=== PATIENT | female | born 1975 | race Caucasian/White ===

== ENCOUNTER 2020-02-27 02:37 | Outpatient (CLI) | payer BC | END 2020-02-27 02:38 | disposition critical access hospital (66) | LOC: EMS 02:37 | PROVIDERS: ATTEND Surgery | DX: R40.4 Transient alteration of awareness (principal) | CPT/HCPCS: A0425; A0433 ==

== ENCOUNTER 2020-02-27 02:54 | Emergency (ER) | payer BC ==
--- NOTE | 2020-02-27 02:59 | ED Physician Documentation ---
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 Medic reports that patient is visiting [place] from [place], staying with friends at a rental house. 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 Per medic report, patients friend did not call 911 for an hour after patient exhibited ALOC. medics arrived to find patient unconscious and unresponsive to any stimuli including painful stimulus, and shallow respirations with hypopnea (respiratory rate was estimated to be 6/min). she was thus intubated by EMS. she was given versed 5mg as well as succinylcholine, but required repeat dose of versed and then given vecuronium; the second dose of versed and the vecuronium were given approximately 15 minutes FABRIC SEPARATOR OPERATOR. prior to decision to intubate was made, patient received narcan to total of 2mg IV with no change in LOC nor respiratory rate. no hypotension in field nor en route. per medics, no evidence to suggest illicit drug use on scene. no evidence nor description by friend of injury or fall, and no description of seizure-like activity Review of Systems Unable to obtain: Intubated PD PAST MEDICAL HISTORY - Past Medical History Psych: ADD/ADHD - Present Medications Home Medications: Ambulatory Orders Medication Instructions Recorded Confirmed Dextroamphetamine/Amphetamine 20 mg PO 02/27/20 02/27/20 [Adderall 20 mg Tablet] Dextroamphetamine/Amphetamine 15 mg PO 02/27/20 [Adderall Xr 15 mg Capsule] Pantoprazole [Protonix] 40 mg PO BID 02/27/20 02/27/20 SUMAtriptan [Imitrex] 50 mg PO ONCE PRN 02/27/20 02/27/20 Valacyclovir HCl [Valtrex] 1 g PO PRN 02/27/20 - Allergies Allergies/Adverse Reactions: Allergies Allergy/AdvReac Type Severity Reaction Status Date / Time Unable to Assess Allergy Verified 02/27/20 03:05 PD ED PE NORMAL - Vitals Vital signs reviewed: Yes - General General: Well developed/nourished - HEENT HEENT: Atraumatic, Other (pupils are equal, constricted (3mm)) - Cardiac Cardiac: RRR - Respiratory Respiratory: Clear bilaterally, Other (intubated) - Abdomen Abdomen: Non distended - Derm Derm: Normal color, Warm and dry - Extremities Extremities: No deformity - Neuro Eye Opening: None Motor: None Verbal: None (intubated) GCS Score: 3 PD ED PE EXPANDED - General General: Unresponsive, Other (intubated, no response to stimuli including pain) Results - Vitals Vitals: Vital Signs - 24 hr 02/27/20 02/27/20 02/27/20 02:53 03:00 03:07 Temperature 33.2 C L Heart Rate 66 55 L Respiratory 11 L Rate Blood Pressure 135/95 H O2 Saturation 100 02/27/20 02/27/20 02/27/20 03:30 03:54 04:30 Temperature 34.5 C L 34.7 C L 35.1 C L Heart Rate 72 57 L 112 H Respiratory 18 18 14 Rate Blood Pressure 130/96 H 126/89 H 142/99 H O2 Saturation 100 100 100 02/27/20 02/27/20 02/27/20 05:00 05:30 06:00 Temperature 35.4 C L 35.9 C L 36.2 C L Heart Rate 89 87 88 Respiratory 18 17 12 Rate Blood Pressure 147/102 H 128/80 124/71 O2 Saturation 100 100 100 02/27/20 02/27/20 02/27/20 06:30 06:47 07:00 Temperature 36.4 C L 36.4 C L 36.4 C L Heart Rate 104 H 94 Respiratory 15 13 Rate Blood Pressure 128/83 H 137/86 H O2 Saturation 100 100 02/27/20 02/27/20 07:23 08:04 Temperature 36.5 C Heart Rate 100 99 Respiratory 18 16 Rate Blood Pressure 139/95 H 129/75 O2 Saturation 99 99 Oxygen O2 Source Room air - EKG (time done) No standard instances Rate: Rate (enter#) (62) Rhythm: NSR [place]: Normal Intervals: Normal ND QRS: Normal Ischemia: Normal ST segments, T wave inversion (V2, V3) - Labs Labs: Laboratory Tests 02/27/20 02/27/20 02/27/20 03:00 03:00 03:11 WBC 8.6 RBC 3.92 L Hgb 12.5 Hct 36.2 L MCV 92.3 MCH 31.9 H MCHC 34.5 RDW 12.7 Plt Count 263 MPV 9.4 Neut # (Auto) 5.8 Lymph # (Auto) 1.8 [place] # (Auto) 0.7 Eos # (Auto) 0.2 Baso # (Auto) 0.1 Absolute Nucleated RBC 0.00 Nucleated RBC % 0.0 Sodium Potassium Chloride Carbon Dioxide Anion Gap BUN Creatinine Estimated GFR (MDRD) Glucose Calcium Total Bilirubin AST ALT Alkaline Phosphatase Troponin I High Sens B-Natriuretic Peptide 19 Total Protein Albumin Globulin Albumin/Globulin Ratio Lipase TSH HCG, Quant Urine Color YELLOW Urine Clarity CLEAR Urine pH 7.0 Ur Specific [place] 1.020 Urine Protein NEGATIVE Urine Glucose (UA) NEGATIVE Urine Ketones 15 H Urine Occult Blood NEGATIVE Urine Nitrite NEGATIVE Urine Bilirubin NEGATIVE Urine Urobilinogen 1 (NORMAL) Ur Leukocyte Esterase NEGATIVE Ur Microscopic Review NOT INDICATED Urine Culture Comments NOT INDICATED Nasal Adenovirus (PCR) Nasal B. parapertussis DNA (PCR) Nasal Coronavir 229E PCR Nasal Coronavir HKU1 PCR Nasal Coronavir NL63 PCR Nasal Coronavir OC43 PCR Nasal Enterovir/Rhinovir PCR Nasal Influenza B PCR Nasal Influenza A PCR Nasal Parainfluen 1 PCR Nasal Parainfluen 2 PCR Nasal Parainfluen 3 PCR Nasal Parainfluen 4 PCR Nasal RSV (PCR) Nasal B.pertussis DNA PCR Nasal C.pneumoniae (PCR) Hal Human Metapneumo PCR Nasal M.pneumoniae (PCR) Nasal SARS-CoV-2 (PCR) Salicylates Urine Opiates Screen NEGATIVE Ur Oxycodone Screen NEGATIVE Urine Methadone Screen NEGATIVE Ur Propoxyphene Screen NEGATIVE Acetaminophen Ur Barbiturates Screen NEGATIVE Ur Tricyclics Screen NEGATIVE Ur Phencyclidine Scrn NEGATIVE Ur Amphetamine Screen POSITIVE H U Methamphetamines Scrn POSITIVE H U Benzodiazepines Scrn NEGATIVE Urine Cocaine Screen POSITIVE H U Cannabinoids Screen NEGATIVE Ethyl Alcohol 02/27/20 02/27/20 02/27/20 03:27 03:27 03:27 WBC RBC Hgb Hct MCV MCH MCHC RDW Plt Count MPV Neut # (Auto) Lymph # (Auto) [place] # (Auto) Eos # (Auto) Baso # (Auto) Absolute Nucleated RBC Nucleated RBC % Sodium 137 Potassium 3.1 L Chloride 100 L Carbon Dioxide 26 Anion Gap 11.0 BUN 8 Creatinine 0.6 Estimated GFR (MDRD) 108 Glucose 97 Calcium 8.7 Total Bilirubin 1.9 H AST 25 ALT 18 Alkaline Phosphatase 42 Troponin I High Sens B-Natriuretic Peptide Total Protein 6.5 L Albumin 4.1 Globulin 2.4 Albumin/Globulin Ratio 1.7 Lipase 21 L TSH 3.74 HCG, Quant < 0.60 Urine Color Urine Clarity Urine pH Ur Specific [place] Urine Protein Urine Glucose (UA) Urine Ketones Urine Occult Blood Urine Nitrite Urine Bilirubin Urine Urobilinogen Ur Leukocyte Esterase Ur Microscopic Review Urine Culture Comments Nasal Adenovirus (PCR) Nasal B. parapertussis DNA (PCR) Nasal Coronavir 229E PCR Nasal Coronavir HKU1 PCR Nasal Coronavir NL63 PCR Nasal Coronavir OC43 PCR Nasal Enterovir/Rhinovir PCR Nasal Influenza B PCR Nasal Influenza A PCR Nasal Parainfluen 1 PCR Nasal Parainfluen 2 PCR Nasal Parainfluen 3 PCR Nasal Parainfluen 4 PCR Nasal RSV (PCR) Nasal B.pertussis DNA PCR Nasal C.pneumoniae (PCR) Hal Human Metapneumo PCR Nasal M.pneumoniae (PCR) Nasal SARS-CoV-2 (PCR) Salicylates < 6.0 Urine Opiates Screen Ur Oxycodone Screen Urine Methadone Screen Ur Propoxyphene Screen Acetaminophen < 10 L Ur Barbiturates Screen Ur Tricyclics Screen Ur Phencyclidine Scrn Ur Amphetamine Screen U Methamphetamines Scrn U Benzodiazepines Scrn Urine Cocaine Screen U Cannabinoids Screen Ethyl Alcohol < 5.0 02/27/20 02/27/20 03:27 04:00 WBC RBC Hgb Hct MCV MCH MCHC RDW Plt Count MPV Neut # (Auto) Lymph # (Auto) [place] # (Auto) Eos # (Auto) Baso # (Auto) Absolute Nucleated RBC Nucleated RBC % Sodium Potassium Chloride Carbon Dioxide Anion Gap BUN Creatinine Estimated GFR (MDRD) Glucose Calcium Total Bilirubin AST ALT Alkaline Phosphatase Troponin I High Sens < 2.3 L B-Natriuretic Peptide Total Protein Albumin Globulin Albumin/Globulin Ratio Lipase TSH HCG, Quant Urine Color Urine Clarity Urine pH Ur Specific [place] Urine Protein Urine Glucose (UA) Urine Ketones Urine Occult Blood Urine Nitrite Urine Bilirubin Urine Urobilinogen Ur Leukocyte Esterase Ur Microscopic Review Urine Culture Comments Nasal Adenovirus (PCR) NOT DETECTED Nasal B. parapertussis DNA (PCR) NOT DETECTED Nasal Coronavir 229E PCR NOT DETECTED Nasal Coronavir HKU1 PCR NOT DETECTED Nasal Coronavir NL63 PCR NOT DETECTED Nasal Coronavir OC43 PCR NOT DETECTED Nasal Enterovir/Rhinovir PCR NOT DETECTED Nasal Influenza B PCR NOT DETECTED Nasal Influenza A PCR NOT DETECTED Nasal Parainfluen 1 PCR NOT DETECTED Nasal Parainfluen 2 PCR NOT DETECTED Nasal Parainfluen 3 PCR NOT DETECTED Nasal Parainfluen 4 PCR NOT DETECTED Nasal RSV (PCR) NOT DETECTED Nasal B.pertussis DNA PCR NOT DETECTED Nasal C.pneumoniae (PCR) NOT DETECTED Hal Human Metapneumo PCR NOT DETECTED Nasal M.pneumoniae (PCR) NOT DETECTED Nasal SARS-CoV-2 (PCR) NOT DETECTED Salicylates Urine Opiates Screen Ur Oxycodone Screen Urine Methadone Screen Ur Propoxyphene Screen Acetaminophen Ur Barbiturates Screen Ur Tricyclics Screen Ur Phencyclidine Scrn Ur Amphetamine Screen U Methamphetamines Scrn U Benzodiazepines Scrn Urine Cocaine Screen U Cannabinoids Screen Ethyl Alcohol - Rads (name of study) CTH Radiology: Prelim report reviewed, See rad report CXR Radiology: Prelim report reviewed, See rad report PD MEDICAL DECISION MAKING - ED course Complexity details: reviewed results, re-evaluated patient, considered differential, d/w patient ED course: unremarkable w/u including blood tests, CTH, CXR, EKG, respiratory panel, and UA. UDS results would not suggest cause nor contribution to AMS with respiratory depression requiring intubation. patient began to exhibit non-purposeful movement during CTH. upon being brought back to ED, these movements stopped until the intranasal swab for PCR respiratory panel was inserted, at which time she suddenly appeared to waken and was grabbing at the ETT. I was called to the room by ED staff and found her to be pulling at ETT, not following commands but clearly demonstrating purposeful movement and appropriately distressed for situation. respiratory therapist was paged but before he could arrive, I deflated ETT balloon and extubated patient, as she was fighting hard to do so herself and appeared adequately awake for extubation. she had brief cough immediately after ETT was removed but was awake and breathing with good depth and rate of respirations. her vital signs were stable except for ST, expected for situation. within a minute of extubation, patient appeared to rapidly become aware of her surroundings. she appeared frightened and confused but was receptive to calming reassurance given by me and other ED staff. she rapidly became AAOx3 and was observed for another 2 hours prior to discharge to care of her friend. patient tells me she had some alcohol last night although no ethanol detected on blood test. she admits to having done cocaine although not tonight (again, this still would not explain her initial presentation). she strongly denies taking any illicit drugs, pills, or other substances besides alcohol that could explain or contribute to AMS. she is calm and polite, appropriately frightened by, and concerned about, tonights events. results reviewed with patient and she is comfortable with d/c home. she has a normal neurological exam prior to discharge Departure - Departure Disposition: 01 Home, Self Care Clinical Impression: Altered mental status Qualifiers: Altered mental status type: unspecified Qualified Code(s): R41.82 - Altered mental status, unspecified Condition: Good Instructions: ED Altered Loc Follow-Up: LALA KNIGHT [Primary Care Provider] - Discharge Date/Time: 02/27/20 08:09
[2020-02-27 03:08] LABS: BASOPHILS # (AUTO) 0.1 10^3/uL (0.0-0.1); BASOPHILS % (AUTO) 0.6 %; EOSINOPHILS # (AUTO) 0.2 10^3/uL (0.0-0.7); HGB - HEMOGLOBIN 12.5 g/dL (12.0-16.0); LYMPHOCYTES # (AUTO) 1.8 10^3/uL (1.5-3.5); LYMPHOCYTES % (AUTO) 21.1 %; MEAN CORPUSCULAR HEMOGLOBIN 31.9 pg (27.0-31.0); MEAN CORPUSCULAR HGB CONC 34.5 g/dL (32.0-36.0); MEAN CORPUSCULAR VOLUME 92.3 fL (81.0-99.0); MEAN PLATELET VOLUME 9.4 fL (7.9-10.8); MONOCYTES # (AUTO) 0.7 10^3/uL (0.0-1.0); MONOCYTES % (AUTO) 8.6 %; NEUTROPHILS # (AUTO) 5.8 10^3/uL (1.5-6.6); NEUTROPHILS % (AUTO) 67.5 %; PLT - PLATELET COUNT 263 10^3/uL (130-450); RED BLOOD COUNT 3.92 10^6/uL (4.20-5.40); RED CELL DISTRIBUTION WIDTH 12.7 % (12.0-15.0); WHITE BLOOD COUNT 8.6 x10^3/uL (4.8-10.8)
[2020-02-27 03:13] LABS: MUDS CUTOFF CONCENTRATIONS CUTOFF CONC BELOW:
[2020-02-27 03:18] LABS: BILIRUBIN,URINE NEGATIVE (NEGATIVE); CLARITY,URINE CLEAR (CLEAR); GLUCOSE, URINE (UA) NEGATIVE (NEGATIVE); KETONES,URINE (UA) 15 mg/dL (NEGATIVE); LEUKOCYTE ESTERASE, URINE NEGATIVE (NEGATIVE); NITRITE,URINE NEGATIVE (NEGATIVE); OCCULT BLOOD,URINE NEGATIVE (NEGATIVE); PROTEIN,URINE NEGATIVE (NEGATIVE); UROBILINOGEN,URINE 1 (NORMAL) E.U./dL (NORMAL)
[2020-02-27 03:32] LABS: AMPHETAMINE SCREEN,URINE POSITIVE (NEGATIVE); BENZODIAZEPINES SCREEN, URINE NEGATIVE (NEGATIVE); COCAINE SCREEN URINE POSITIVE (NEGATIVE); METHADONE SCREEN, URINE NEGATIVE (NEGATIVE); METHAMPHETAMINES SCREEN, URINE POSITIVE (NEGATIVE); OPIATE SCREEN, URINE NEGATIVE (NEGATIVE); OXYCODONE SCREEN, URINE NEGATIVE (NEGATIVE); PROPOXYPHENE SCREEN, URINE NEGATIVE (NEGATIVE); TRICYCLIC ANTIDEPRESSANT,URINE NEGATIVE (NEGATIVE)
[2020-02-27 03:49] LABS: ACETAMINOPHEN < 10 ug/mL (10-30); ALBUMIN 4.1 g/dL (3.2-5.5); ALBUMIN/GLOBULIN RATIO 1.7 (1.0-2.2); ALKALINE PHOSPHATASE 42 IU/L (42-121); ALT ALANINE AMINOTRANSFERASE 18 IU/L (10-60); AST ASPARTATE AMINOTRANSFERASE 25 IU/L (10-42); BILIRUBIN,TOTAL 1.9 mg/dL (0.2-1.0); BUN - BLOOD UREA NITROGEN 8 mg/dL (6-20); CALCIUM 8.7 mg/dL (8.5-10.3); CARBON DIOXIDE - CO2 26 mmol/L (21-32); CHLORIDE 100 mmol/L (101-111); CREATININE 0.6 mg/dL (0.4-1.0); GLUCOSE 97 mg/dL (70-100); LIPASE 21 U/L (22-51); SALICYLATE < 6.0 mg/dL; SODIUM 137 mmol/L (135-145); TOTAL PROTEIN 6.5 g/dL (6.7-8.2)
[2020-02-27 05:17] LABS: C. PNEUMONIAE- RESP PCR PANEL NOT DETECTED
[2020-02-27 08:04] VITALS: BP 129/75
--- NOTE | 2020-02-27 08:36 | XRAY Report ---
PROCEDURE: Chest 1 View X-Ray INDICATIONS: AMS, intubated TECHNIQUE: One view of the chest was acquired. COMPARISON: . FINDINGS: Surgical changes and devices: Endotracheal tube in normal position. Lungs and pleura: No pleural effusions or pneumothorax. Lungs are mildly abnormal with what appears to be mild pulmonary edema or other causes of interstitial prominence. Mediastinum: Mediastinal contours appear normal. Heart size is normal. Bones and chest wall: No suspicious bony lesions. Overlying soft tissues appear unremarkable. IMPRESSION: Endotracheal tube positioning normal. A small degree of pulmonary edema could be present but the insp iratory volume is reduced and crowding of bronchovascular markings also could explain appearance. Hea rt size is not enlarged. A definite source of altered mental status is not seen. Reviewed by: Liam Seaman MD on 02/27/2020 8:35 AM PST Approved by: Liam Seaman MD on 02/27/2020 8:35 AM PST Station ID: [id number]
--- NOTE | 2020-02-27 08:43 | CT Report ---
PROCEDURE: HEAD WO INDICATIONS: AMS TECHNIQUE: Noncontrast 4.5 mm thick angled axial sections acquired from the foramen magnum to the vertex. For r adiation dose reduction, the following was used: automated exposure control, adjustment of mA and/or kV according to patient size. COMPARISON: None. FINDINGS: Image quality: Excellent. CSF spaces: Basal cisterns are patent. No extra-axial fluid collections. Ventricles are normal in size and shape. Brain: No midline shift. No intracranial masses or hemorrhage. Mari-white matter interface is norm al. Skull and face: Calvarium and visualized facial bones are intact, without suspicious lesions. Sinuses: Visualized sinuses and mastoids are clear. IMPRESSION: Source of altered mental status is not found. Reviewed by: Liam Seaman MD on 02/27/2020 8:42 AM [facility] Approved by: Liam Seaman MD on 02/27/2020 8:42 AM [facility] Station ID: [id number]
== END 2020-02-27 08:09 | disposition home or self-care (01) ==
LOC: ED 02:54
DX: R41.82 Altered mental status, unspecified (principal); R06.03 Acute respiratory distress; Z20.822 Contact with and (suspected) exposure to COVID-19; Z72.89 Other problems related to lifestyle; F14.90 Cocaine use, unspecified, uncomplicated
CPT/HCPCS: 0202U; 36415; 43753; 51702; 70450; 71045; 80320; 80329; 81003; 83690; 83880; 84484; 84702; 93005; 99281; 99285; 80053; 80306; 80307; 81001; 84443; 85025; 87086; 94770